=== PATIENT | male | born 1950 | race Caucasian/White ===

== ENCOUNTER 2019-09-28 23:07 | Inpatient (IN) | payer MEDICARE, MEDICAID ==
[~2019-09-28] VITALS: Ht 182.9 cm; Wt 83.9 kg
[2019-09-28] MEDS ORDERED: ONDANSETRON HCL 4MG/2ML INJ IV STA (23:40)
[2019-09-28] MEDS ORDERED: SODIUM CHLORIDE 0.9% 1,000 ML IV ONE (23:40)
[2019-09-28] MEDS ORDERED: LORAZEPAM 2MG/ML CPJ IV ONE (23:45)
[2019-09-28] MEDS ORDERED: LEVETIRACETAM 500MG PREMIX 100 ML IV ONE (23:45)
[2019-09-29 00:02] LABS: HEMATOCRIT. 34.9 % (42.0-52.0); HEMOGLOBIN. 11.7 g/dL (14.0-18.0); MEAN CORPUSCULAR HEMOGLOBIN 34.1 pg (28.0-32.0); MEAN CORPUSCULAR VOLUME 101.5 fL (80.0-94.0); MEAN PLATELET VOLUME 9.6 fl (7.4-10.4); PLATELET 137 x1000/uL (130-400); RED BLOOD CELL COUNT 3.44 mill/uL (4.7-6.1); RED CELL DISTRIBUTION WIDTH 19.3 % (11.6-14.6)
[2019-09-29 00:03] LABS: BG BASE EXCESS -5.1 mmol/L (-2.0-2.0); BG CARBOXYHEMOGLOBIN 0.5 % (0.5-1.5); BG DEOXYHEMOGLOBIN 10.1 % (0.0-5.0); BG FRACTION INSPIRED OXYGEN 21; BG HCO3 ACT 20.4 mmol/L (22.0-26.0); BG OXYGEN SATURATION 89.8 % (92.0-98.5); BG OXYHEMOGLOBIN 89.4 % (94.0-97.0); BG PCO2 39.5 mmHg (35.0-45.0); BG PO2 63.9 mmHg (75.0-100.0); BG SAMPLE SITE RIGHT RADIAL; BG TOTAL HEMOGLOBIN 12.5 g/dL (12.0-18.0); BG VENT MODE ROOM AIR
[2019-09-29 00:07] LABS: CHLORIDE 106 mEq/L (98-107)
[2019-09-29 00:47] LABS: PLATELET ESTIMATE NORMAL
[2019-09-29 02:04] LABS: CLARITY URINE CLEAR (CLEAR); COLOR URINE YELLOW (YELLOW); KETONES URINE NEGATIVE (NEGATIVE); LEUKOCYTE ESTERASE URINE NEGATIVE (NEGATIVE); NITRITE URINE NEGATIVE (NEGATIVE); OCCULT BLOOD URINE 1+ (NEGATIVE); PROTEIN URINE 2+ (NEGATIVE); SPECIFIC GRAVITY URINE 1.024 (1.005-1.030)
[2019-09-29 02:15] LABS: *AMPHETAMINES SCREEN URINE NEGATIVE (NEGATIVE); *BARBITURATES SCREEN URINE NEGATIVE (NEGATIVE); *BENZODIAZEPINES SCREEN URINE PRESUMTIVE POSITIVE (NEGATIVE)
[2019-09-29 02:16] LABS: *COCAINE SCREEN URINE NEGATIVE (NEGATIVE); CANNABINOID URINE SCREEN NEGATIVE (NEGATIVE); METHADONE URINE SCREEN NEGATIVE (NEGATIVE); OPIATES URINE SCREEN NEGATIVE (NEGATIVE); PHENCYCLIDINE URINE SCREEN NEGATIVE (NEGATIVE)
[2019-09-29] MEDS ORDERED: GUAIFENESIN 200MG/10ML SUGAR FREE UDC PO PRN (06:45)
[2019-09-29] MEDS ORDERED: DOCUSATE SODIUM 100MG CAPSULE PO PRN (06:45)
[2019-09-29] MEDS ORDERED: ONDANSETRON HCL 4MG/2ML INJ IV PRN (06:45)
[2019-09-29] MEDS ORDERED: NA PHOS,M-B/NA PHOS,DI-BA ENEMA 118ML PR PRN (06:45)
[2019-09-29] MEDS ORDERED: CLONIDINE 0.1MG TABLET PO PRN (06:45)
[2019-09-29] MEDS ORDERED: MAGNESIUM/ALUMINUM HYDROXIDE/SIMETHICONE 30ML UDC PO PRN (06:45)
[2019-09-29] MEDS ORDERED: ACETAMINOPHEN 325MG TABLET PO PRN (06:45)
[2019-09-29] MEDS ORDERED: LORAZEPAM 2MG/ML CPJ IV PRN (06:45)
[2019-09-29] MEDS ORDERED: IPRATROPIUM/ALBUTEROL 0.5-3(2.5)MG/3ML NEB NEB PRN (06:45)
[2019-09-29] MEDS ORDERED: MORPHINE SULFATE 2 MG/ML CPJ (NOT FOR IM USE) IV PRN (06:45)
[2019-09-29] MEDS ORDERED: HYDROCODONE/APAP 7.5/325MG 1 TAB TABLET PO PRN (06:45)
[2019-09-29] MEDS ORDERED: DIPHENHYDRAMINE 50MG/ML VIAL IV PRN (06:45)
[2019-09-29] MEDS ORDERED: PIPERACILLIN/TAZ 3.375G PREMIX 50 ML IV SCH ×2 (08:15→11:00)
[2019-09-29] MEDS: ENOXAPARIN 40MG/0.4ML SYR SUBCUT SCH (09:43)
[2019-09-29] MEDS: ASPIRIN 81MG EC TABLET PO SCH (09:43)
[2019-09-29 10:00] VITALS: BP 172/102
[2019-09-29] MEDS ORDERED: PIPERACILLIN/TAZOBACTAM 3.375 G in DEXT 5% WATER 100 ML IV SCH (11:00)
[2019-09-29 12:00] VITALS: BP 162/99
[2019-09-29 12:25] LABS: CHLORIDE 109 mEq/L (98-107)
[2019-09-29] MEDS ORDERED: AMLODIPINE 10MG TABLET PO SCH (13:30)
[2019-09-29] MEDS: SODIUM CHLORIDE 0.45% 1,000 ML IV SCH (14:03)
[2019-09-29] MEDS: PIPERACILLIN/TAZOBACTAM 3.375 G in DEXT 5% WATER 100 ML IV SCH ×2 (14:04→22:26)
[2019-09-29 16:00] VITALS: BP 145/88
[2019-09-29 17:05] LABS: CREATINE KINASE MB FRACTION 16.4 ng/mL (0.5-3.6)
[2019-09-29 20:00] VITALS: BP 129/71
[2019-09-30] VITALS: BP 157/78
[2019-09-30 00:26] LABS: CREATINE KINASE MB FRACTION 10.1 ng/mL (0.5-3.6)
[2019-09-30 04:00] VITALS: BP 126/71
[2019-09-30] MEDS: PIPERACILLIN/TAZOBACTAM 3.375 G in DEXT 5% WATER 100 ML IV SCH ×3 (05:54→22:22)
[2019-09-30 07:02] LABS: BASOPHILS % 0.7 % (0.0-2.0); EOSINOPHILS % 12.2 % (0.0-5.0); HEMATOCRIT. 31.6 % (42.0-52.0); HEMOGLOBIN. 10.9 g/dL (14.0-18.0); LYMPHOCYTES % 9.9 % (20.0-50.0); MEAN CORPUSCULAR HEMOGLOBIN 34.3 pg (28.0-32.0); MEAN CORPUSCULAR VOLUME 99.7 fL (80.0-94.0); MEAN PLATELET VOLUME 9.4 fl (7.4-10.4); NEUTROPHILS % 63.2 % (40.0-76.0); PLATELET 107 x1000/uL (130-400); RED BLOOD CELL COUNT 3.17 mill/uL (4.7-6.1); RED CELL DISTRIBUTION WIDTH 18.8 % (11.6-14.6)
[2019-09-30 07:16] LABS: CHLORIDE 110 mEq/L (98-107)
[2019-09-30 07:25] LABS: LDL CHOLESTEROL 80 mg/dL (5-100)
[2019-09-30 07:26] LABS: CREATINE KINASE 121 IU/L (39-308); CREATINE KINASE MB FRACTION 5.1 ng/mL (0.5-3.6); HDL CHOLESTEROL 45 mg/dL (40-59)
[2019-09-30 08:00] VITALS: BP 130/74
[2019-09-30] MEDS: ASPIRIN 81MG EC TABLET PO SCH (10:40)
[2019-09-30] MEDS: ENOXAPARIN 40MG/0.4ML SYR SUBCUT SCH (10:41)
[2019-09-30 12:00] VITALS: BP 125/71
[2019-09-30] MEDS: SODIUM CHLORIDE 0.45% 1,000 ML IV SCH (12:40)
[2019-09-30 16:00] VITALS: BP 119/77
[2019-09-30 20:00] VITALS: BP 126/70
[2019-09-30 20:27] LABS: VITAMIN B12 SERUM 224 pg/mL (211-911)
[2019-09-30] MEDS: LEVETIRACETAM 500MG TABLET PO SCH (22:25)
[2019-10-01] VITALS: BP 148/85
[2019-10-01 04:00] VITALS: BP 140/82
[2019-10-01] MEDS: PIPERACILLIN/TAZOBACTAM 3.375 G in DEXT 5% WATER 100 ML IV SCH ×3 (06:29→21:03)
[2019-10-01 08:00] VITALS: BP 160/87
[2019-10-01] MEDS: LEVETIRACETAM 500MG TABLET PO SCH ×2 (08:06→20:54)
[2019-10-01] MEDS: ENOXAPARIN 40MG/0.4ML SYR SUBCUT SCH (08:06)
[2019-10-01] MEDS: ASPIRIN 81MG EC TABLET PO SCH (08:06)
[2019-10-01] MEDS: SODIUM CHLORIDE 0.45% 1,000 ML IV SCH (08:39)
[2019-10-01 12:00] VITALS: BP 137/69
[2019-10-01 16:00] VITALS: BP 135/75
[2019-10-01 20:00] VITALS: BP 133/77
[2019-10-02] VITALS (7 sets, daily range): BP systolic 114–159; BP diastolic 68–82
[2019-10-02] MEDS: PIPERACILLIN/TAZOBACTAM 3.375 G in DEXT 5% WATER 100 ML IV SCH ×2 (05:36→13:45)
[2019-10-02 06:55] LABS: BASOPHILS % 0.7 % (0.0-2.0); EOSINOPHILS % 19.7 % (0.0-5.0); HEMATOCRIT. 31.5 % (42.0-52.0); LYMPHOCYTES % 9.4 % (20.0-50.0); MEAN CORPUSCULAR HEMOGLOBIN 34.8 pg (28.0-32.0); MEAN CORPUSCULAR VOLUME 99.3 fL (80.0-94.0); MEAN PLATELET VOLUME 9.3 fl (7.4-10.4); MONOCYTES % 13.9 % (2.0-8.0); NEUTROPHILS % 56.3 % (40.0-76.0); PLATELET 128 x1000/uL (130-400); RED BLOOD CELL COUNT 3.17 mill/uL (4.7-6.1); RED CELL DISTRIBUTION WIDTH 18.3 % (11.6-14.6)
[2019-10-02 07:44] LABS: CHLORIDE 110 mEq/L (98-107)
[2019-10-02] MEDS: LEVETIRACETAM 500MG TABLET PO SCH (08:44)
[2019-10-02] MEDS: ASPIRIN 81MG EC TABLET PO SCH (08:44)
[2019-10-02] MEDS: ENOXAPARIN 40MG/0.4ML SYR SUBCUT SCH (08:44)
[2019-10-02] MEDS: SODIUM CHLORIDE 0.45% 1,000 ML IV SCH (08:45)
== END 2019-10-02 21:00 | DRG 101 ==
LOC: ER 23:07 → 5WST 09-29 03:45 → EDBEDREQDT 09-29 03:47 → EDBEDREQ 09-29 03:47 → EDBEDREQTM 09-29 03:47 → ENRESERV 09-29 07:04 → 5WST 09-29 11:59
PROVIDERS: ADMIT Internal Medicine; ATTEND Internal Medicine
DX: G40.89 Other seizures (principal); I67.82 Cerebral ischemia; E87.2 Acidosis; E86.0 Dehydration; I11.9 Hypertensive heart disease without heart failure; I45.10 Unspecified right bundle-branch block; D53.9 Nutritional anemia, unspecified; Z86.73 Personal history of transient ischemic attack (TIA), and cerebral infarction without residual deficits
CPT/HCPCS: 36415; 36600; 71045; 80048; 80053; 80061; 80305; 81003; 82375; 82550; 82553; 82607; 82805; 83036; 83605; 83880; 84439; 84443; 84484; 85025; 85379; 93005; 93306; 93970; 96365; 96366; 96375; 97162; 99291; C1893; J1650; J1953; J2060; J2405; J2543; J7030; J7060